=== PATIENT | female | born 1995 | race Two or more races ===

== ENCOUNTER 2023-11-09 19:14 | Emergency (ER) | payer OTHER ==
[~2023-11-09] VITALS: Ht 162.6 cm; Wt 88.6 kg
[2023-11-09 22:10] VITALS: BP 122/67; PULSE 84; RESP 20; TEMP 98.1; O2SAT 98
== END 2023-11-09 21:47 | disposition home or self-care (01) ==
LOC: ER 19:14
DX: O20.0 Threatened abortion (principal); Z3A.09 9 weeks gestation of pregnancy
CPT/HCPCS: 36415; 76801; 76817; 84702

== ENCOUNTER 2023-12-18 17:30 | Emergency (ER) | payer OTHER ==
[~2023-12-18] VITALS: Ht 162.6 cm; Wt 88.8 kg
[2023-12-18 18:50] VITALS: BP 126/80; PULSE 98; RESP 16; TEMP 98.3; O2SAT 99
== END 2023-12-18 20:00 | disposition home or self-care (01) ==
LOC: ER 17:37
DX: O03.9 Complete or unspecified spontaneous abortion without complication (principal)
CPT/HCPCS: 76801